=== PATIENT | female | born 1950 | race Caucasian/White ===

== ENCOUNTER 2024-01-31 15:31 | Outpatient (CLI) | payer MEDICARE | END 2024-01-31 15:32 | disposition home or self-care (01) | LOC: BICRAD 15:31 | PROVIDERS: ATTEND Family Medicine | DX: M25.572 Pain in left ankle and joints of left foot (principal); M79.89 Other specified soft tissue disorders ==

== ENCOUNTER 2024-09-03 11:27 | Emergency (ER) | payer MEDICARE ==
[2024-09-03] MEDS ORDERED: Ondansetron PF 4 MG/2 ML Vial ONE (11:53)
[2024-09-03] MEDS ORDERED: Magnesium 2 GM/50 ML BAG (IN WATER) ONE (11:56)
[2024-09-03] MEDS ORDERED: Adenosine 6 mg (2 mL) VIAL ONE (11:57)
[2024-09-03 12:01] LABS: #Basophils 0.05 10x3/uL (0.0-0.2); %Basophils 0.6 % (0.0-1.0); %Eosinophils 0.9 % (0.0-10.0); %Lymphocytes 31.8 % (21.0-51.0); %Monocytes 6.5 % (0.0-10.0); %Neutrophils 59.8 % (42.0-75.0); Hematocrit 42.5 % (36.0-47.0); Hemoglobin 14.4 g/dL (12.0-16.0); Mean Corpuscular HGB CONC 33.9 g/dL (32.0-36.0); Mean Corpuscular Hemoglobin 29.4 pg (27.0-31.0); Mean Corpuscular Volume 86.7 fL (78.0-98.0); Mean Platelet Volume 10.1 fL (7.4-10.4); Platelet Count 334 10x3/uL (130-400); RBC Distribution Width 12.4 % (11.5-14.5)
[2024-09-03 12:27] LABS: ALT (SGPT) 31 U/L (8-55); AST (SGOT) 31 U/L (5-34); Albumin 4.5 g/dL (3.4-4.8); Alkaline Phosphatase 75 U/L (40-110); Anion Gap 14 mmol/L (10-20); BUN (Urea Nitrogen) 12 mg/dL (9.8-20.1); Bilirubin, Total 0.9 mg/dL (0.2-1.2); Calc. Creatinine Clearance 0 mL/min (70-130); Calcium 9.3 mg/dL (7.8-10.44); Carbon Dioxide 21 mmol/L (23-31); Chloride 103 mmol/L (98-107); Estimated GFR 65; Globulin 2.8 g/dL (2.4-3.5); Glucose 341 mg/dL (83-110); Magnesium 1.7 mg/dL (1.6-2.6); Potassium 3.2 mmol/L (3.5-5.1); Protein, Total 7.3 g/dL (5.8-8.1); Sodium 135 mmol/L (136-145)
[2024-09-03 13:06] LABS: Troponin I Less than 0.010 ng/mL (< 0.028)
[2024-09-03] MEDS ORDERED: Potassium Chloride 20 MEQ TAB ONE (13:09)
[2024-09-03] MEDS ORDERED: Guaifenesin DM 100-10/5 ML UDCUP PO PRN (14:48)
[2024-09-03] MEDS ORDERED: Senokot S 8.6-50 MG TAB PO PRN (14:48)
[2024-09-03] MEDS ORDERED: Acetaminophen 325 MG TAB PO PRN (14:48)
[2024-09-03] MEDS ORDERED: Insulin Regular, Human 100 UNIT/ML 10 ML VIAL SC PRN (14:54)
[2024-09-03] MEDS ORDERED: Dextrose 5% in Water 1,000 ML IV PRN (14:54)
[2024-09-03] MEDS ORDERED: Dextrose 50% Abboject 50 ML SYRINGE SLOW IVP PRN (14:54)
[2024-09-03] MEDS ORDERED: Glucagon 1 MG/ML KIT IM PRN (14:54)
[2024-09-03 15:24] LABS: Magnesium 2.6 mg/dL (1.6-2.6)
[2024-09-03] MEDS ORDERED: Magnesium 2 GM/50 ML(in water) 2 GM in Premix 1 BAG IVPB SCH (17:00)
[2024-09-03 17:41] LABS: Phosphorus 1.9 mg/dL (2.3-4.7)
[2024-09-03] MEDS ORDERED: Famotidine/PF 20 mg/2ml Vial SLOW IVP SCH (21:00)
[2024-09-04] MEDS ORDERED: Enoxaparin 40 MG (0.4 mL) SYRINGE SC SCH (09:00)
== END 2024-09-03 16:19 | disposition home or self-care (01) ==
LOC: ERS 11:27
DX: I47.10 Supraventricular tachycardia, unspecified (principal); Z55.6 Problems related to health literacy
CPT/HCPCS: 71045; 83735; 83880; 84100; 84484; 93005; 96374; 96375; 99285; J0153; J2405; J3475; 36415; 80053; 84443; 85025

== ENCOUNTER 2024-11-12 09:33 | Outpatient (CLI) | payer MEDICARE ==
[2024-11-12 10:30] LABS: #Basophils 0.04 10x3/uL (0.0-0.2); %Basophils 0.7 % (0.0-1.0); %Eosinophils 1.2 % (0.0-10.0); %Monocytes 8.6 % (0.0-10.0); Hemoglobin 12.7 g/dL (12.0-16.0); Mean Corpuscular HGB CONC 33.4 g/dL (32.0-36.0); Mean Corpuscular Hemoglobin 30.1 pg (27.0-31.0); Mean Platelet Volume 9.6 fL (7.4-10.4); Platelet Count 312 10x3/uL (130-400); RBC Distribution Width 12.6 % (11.5-14.5); Red Blood Cell (RBC) Count 4.22 mill/uL (4.20-5.40)
[2024-11-12 10:51] LABS: Anion Gap 11 mmol/L (10-20); BUN (Urea Nitrogen) 14 mg/dL (9.8-20.1); Calc. Creatinine Clearance 0 mL/min (70-130); Calcium 9.6 mg/dL (7.8-10.44); Carbon Dioxide 26 mmol/L (23-31); Chloride 104 mmol/L (98-107); Estimated GFR 74; Glucose 141 mg/dL (83-110); Potassium 4.3 mmol/L (3.5-5.1); Sodium 137 mmol/L (136-145)
== END 2024-11-12 09:34 | disposition home or self-care (01) ==
LOC: LABBT 09:33
PROVIDERS: ATTEND Internal Medicine Cardiovascular Disease
DX: Z01.812 Encounter for preprocedural laboratory examination (principal); I47.10 Supraventricular tachycardia, unspecified
CPT/HCPCS: 80048; 85025

== ENCOUNTER 2024-12-03 06:16 | Day surgery (SDC) | payer MEDICARE ==
[2024-11-30 15:04] VITALS: BMI 25.5
[2024-12-03] MEDS ORDERED: Heparin 10,000 UNITS/ 10 ML VIAL ONE (06:51)
[2024-12-03] MEDS ORDERED: fentaNYL 50 mcg/mL 1 mL Vial ONE (08:14)
[2024-12-03] MEDS ORDERED: ePHEDrine Sulfate 50 MG/10 ML VIAL ONE (08:14)
[2024-12-03] MEDS ORDERED: GLYCOPYRROLATE/PF 0.2 MG/ML VIAL ONE (08:14)
[2024-12-03] MEDS ORDERED: Ondansetron PF 4 MG/2 ML Vial ONE (08:19)
[2024-12-03] MEDS ORDERED: Dexamethasone 4 mg/ml Vial ONE (08:19)
[2024-12-03] MEDS ORDERED: Lidocaine 1% PF 5 ML VIAL ONE (08:34)
[2024-12-03] MEDS ORDERED: PHENYLEPHRINE-NS 100 MCG/ML 10 ML SYRINGE ONE (08:34)
[2024-12-03] MEDS ORDERED: Isoproterenol 0.2 MG/1 ML AMP ONE (09:21)
[2024-12-03] MEDS ORDERED: Propofol 1,000 MG/100 ML VIAL IV ONE (09:30)
[2024-12-03] MEDS ORDERED: PROPOFOL 20 ML ONE (09:32)
== END 2024-12-03 14:41 | disposition home or self-care (01) ==
LOC: SDC 06:16
PROVIDERS: ATTEND Internal Medicine Cardiovascular Disease
PROC: 4A023FZ Measurement of Cardiac Rhythm, Percutaneous Approach (ICD-10-PCS; principal; 2024-12-03)
DX: I47.10 Supraventricular tachycardia, unspecified (principal); I10 Essential (primary) hypertension; I34.0 Nonrheumatic mitral (valve) insufficiency; I07.1 Rheumatic tricuspid insufficiency; E78.5 Hyperlipidemia, unspecified; K50.90 Crohn's disease, unspecified, without complications; Z90.710 Acquired absence of both cervix and uterus; Z90.89 Acquired absence of other organs; Z98.890 Other specified postprocedural states; Z79.01 Long term (current) use of anticoagulants
CPT/HCPCS: 93623; 93653; J1100; J1644; J2405; J2704; J3010; J3490; 93005; 93010; C1730; C1732; C1760; C1769; C1894; C2630

== ENCOUNTER 2025-09-10 04:12 | Emergency (ER) | payer MEDICARE ==
[2025-09-10 04:49] LABS: #Basophils 0.04 10x3/uL (0.0-0.2); #Eosinophils 0.09 10x3/uL (0.0-0.7); #Monocytes 0.71 10x3/uL (0.11-0.59); #Neutrophils 4.05 10x3/uL (1.40-6.50); %Basophils 0.6 % (0.0-1.0); %Eosinophils 1.3 % (0.0-10.0); %Lymphocytes 31.5 % (21.0-51.0); %Monocytes 9.9 % (0.0-10.0); %Neutrophils 56.6 % (42.0-75.0); Hematocrit 41.6 % (36.0-47.0); Hemoglobin 13.4 g/dL (12.0-16.0); Mean Corpuscular Hemoglobin 28.7 pg (27.0-31.0); Mean Corpuscular Volume 89.1 fL (78.0-98.0); Platelet Count 301 10x3/uL (130-400); Red Blood Cell (RBC) Count 4.67 mill/uL (4.20-5.40); White Blood Cell (WBC) Count 7.15 10x3/uL (4.8-10.8)
[2025-09-10 05:26] LABS: ALT (SGPT) 31 U/L (Less than 34); AST (SGOT) 35 U/L (11-34); Albumin 4.6 g/dL (3.1-4.5); Alkaline Phosphatase 76 U/L (40-110); Anion Gap 13 mmol/L (10-20); BUN (Urea Nitrogen) 10 mg/dL (9.8-20.1); Bilirubin, Total 1.0 mg/dL (0.3-1.2); Calc. Creatinine Clearance 0 mL/min (70-130); Calcium 9.9 mg/dL (7.8-10.44); Carbon Dioxide 26 mmol/L (23-31); Chloride 106 mmol/L (98-107); Globulin 2.4 g/dL (2.4-3.5); Glucose 119 mg/dL (83-110); Potassium 3.8 mmol/L (3.5-5.1); Sodium 141 mmol/L (136-145)
== END 2025-09-10 05:30 | disposition home or self-care (01) ==
LOC: ERS 04:12
DX: I49.9 Cardiac arrhythmia, unspecified (principal); I10 Essential (primary) hypertension; E78.00 Pure hypercholesterolemia, unspecified; Z79.899 Other long term (current) drug therapy
CPT/HCPCS: 80053; 83880; 84484; 85025; 93005; 99285